=== PATIENT | female | born 1990 | race Asian ===

== ENCOUNTER 2022-03-30 13:36 | Emergency (ER) | payer SELFPAY ==
[~2022-03-30] VITALS: Ht 172.7 cm; Wt 54.5 kg
[2022-03-30 13:42] VITALS: BP 106/69
[2022-03-30 16:40] LABS: BASOPHILS % 0.6 % (0.0-2.0); EOSINOPHILS % 1.5 % (0.0-5.0); HEMOGLOBIN. 13.9 g/dL (12.0-16.0); MEAN CORPUSCULAR HEMOGLOBIN 32.1 pg (28.0-32.0); MEAN PLATELET VOLUME 9.3 fl (7.4-10.4); MONOCYTES % 9.7 % (2.0-8.0); NEUTROPHILS % 75.2 % (40.0-76.0); PLATELET 143 x1000/uL (130-400); RED BLOOD CELL COUNT 4.32 mill/uL (4.2-5.4); RED CELL DISTRIBUTION WIDTH 13.4 % (11.6-14.6)
[2022-03-30 16:51] LABS: CHLORIDE 105 mEq/L (98-107)
[2022-03-30 17:04] LABS: CLARITY URINE CLOUDY (CLEAR); COLOR URINE YELLOW (YELLOW); KETONES URINE NEGATIVE (NEGATIVE); LEUKOCYTE ESTERASE URINE NEGATIVE (NEGATIVE); NITRITE URINE NEGATIVE (NEGATIVE); OCCULT BLOOD URINE NEGATIVE (NEGATIVE); PROTEIN URINE NEGATIVE (NEGATIVE); SPECIFIC GRAVITY URINE 1.009 (1.005-1.030); UROBILINOGEN URINE 0.2 E.U./dL (0.2-1.0)
[2022-03-30 17:30] LABS: B-HCG QUANTITATIVE > 200000 mIU/mL (<3)
== END 2022-03-30 18:03 | disposition home or self-care (01) ==
LOC: ER 13:36
DX: O20.0 Threatened abortion (principal); Z3A.14 14 weeks gestation of pregnancy; R79.89 Other specified abnormal findings of blood chemistry
CPT/HCPCS: 36415; 76801; 76802; 80053; 81003; 84702; 85025; 86850; 86900; 99284